=== PATIENT | female | born 1940 | race Two or more races ===

== ENCOUNTER 2017-05-04 16:15 | Inpatient (IN) | payer OTHER ==
[~2017-05-04] VITALS: Ht 160 cm; Wt 134.3 kg
[2017-05-04] MEDS ORDERED: SYNTHROID88 MCG (16:28)
[2017-05-04] MEDS ORDERED: NEURONTIN600 MG (16:28)
[2017-05-04] MEDS ORDERED: ZESTORETIC 20-1 EAC1 (16:29)
[2017-05-04] MEDS ORDERED: LIPITOR20 MG (16:29)
[2017-05-04] MEDS ORDERED: SINGULAIR10 MG (16:29)
[2017-05-04] MEDS ORDERED: ASPIR 8181 MG (16:29)
== END 2017-05-07 12:55 | disposition home or self-care (01) | DRG 202 ==
LOC: ER 16:15 → SEC-K 05-05 10:04 → MEDI 05-05 10:04
PROC: 3E0F7GC Introduction of Other Therapeutic Substance into Respiratory Tract, Via Natural or Artificial Opening (ICD-10-PCS; principal; 2017-05-05)
DX: J45.31 Mild persistent asthma with (acute) exacerbation (principal); J44.1 Chronic obstructive pulmonary disease with (acute) exacerbation; I10 Essential (primary) hypertension; E03.8 Other specified hypothyroidism

== ENCOUNTER 2017-08-16 13:14 | Outpatient (CLI) | payer OTHER ==
[~2017-08-16 13:14] MED LIST: ASPIR 8181 MG; LIPITOR20 MG; NEURONTIN600 MG; SINGULAIR10 MG; SYNTHROID88 MCG; ZESTORETIC 20-1 EAC1
== END 2017-08-16 13:34 | disposition home or self-care (01) ==
LOC: MAMO-SONO 13:14
DX: Z12.31 Encounter for screening mammogram for malignant neoplasm of breast (principal); Z87.898 Personal history of other specified conditions; N63.10 Unspecified lump in the right breast, unspecified quadrant; N63.20 Unspecified lump in the left breast, unspecified quadrant; D24.1 Benign neoplasm of right breast

== ENCOUNTER 2017-11-10 14:38 | Outpatient (CLI) | payer OTHER | END 2017-11-10 14:57 | disposition home or self-care (01) | LOC: SONOGRAMA 14:38 | DX: N60.11 Diffuse cystic mastopathy of right breast (principal); N60.12 Diffuse cystic mastopathy of left breast; N63.22 Unspecified lump in the left breast, upper inner quadrant ==

== ENCOUNTER 2017-12-15 12:20 | Outpatient (CLI) | payer OTHER | END 2017-12-15 12:34 | disposition home or self-care (01) | LOC: SONOGRAMA 12:20 | DX: N60.11 Diffuse cystic mastopathy of right breast (principal); N60.12 Diffuse cystic mastopathy of left breast; N63.22 Unspecified lump in the left breast, upper inner quadrant ==

== ENCOUNTER 2018-05-23 13:52 | Outpatient (CLI) | payer OTHER | END 2018-05-23 15:28 | disposition home or self-care (01) | LOC: TOM 13:52 | DX: R91.1 Solitary pulmonary nodule (principal); A15.0 Tuberculosis of lung ==

== ENCOUNTER 2018-06-05 16:25 | Outpatient (CLI) | payer OTHER ==
[2018-06-12] MEDS ORDERED: ZESTORETIC 10-1 EACH PO (16:49)
[2018-06-12] MEDS ORDERED: LATANOPROST2.5 ML OP (16:51)
== END 2018-06-05 16:49 | disposition home or self-care (01) ==
LOC: RAD 16:25
DX: I10 Essential (primary) hypertension (principal)

== ENCOUNTER 2018-06-15 06:13 | Day surgery (SDC) | payer OTHER ==
[~2018-06-15 06:13] MED LIST changes: +LATANOPROST2.5 ML OP; +ZESTORETIC 10-1 EACH PO
== END 2018-06-15 19:40 | disposition home or self-care (01) ==
LOC: CIR.AMB 06:13 → ADM 06-21 14:45
DX: D05.12 Intraductal carcinoma in situ of left breast (principal)

== ENCOUNTER 2019-05-16 16:24 | Outpatient (CLI) | payer OTHER | END 2019-05-16 16:44 | disposition home or self-care (01) | LOC: RAD 16:24 | DX: H25.011 Cortical age-related cataract, right eye (principal); Z98.41 Cataract extraction status, right eye ==

== ENCOUNTER 2019-06-25 14:14 | Outpatient (CLI) | payer OTHER | END 2019-06-25 14:19 | disposition home or self-care (01) | LOC: TOM 14:14 | DX: R91.1 Solitary pulmonary nodule (principal) ==

== ENCOUNTER 2019-11-05 13:47 | Outpatient (CLI) | payer OTHER | END 2019-11-05 13:52 | disposition home or self-care (01) | LOC: MAMO-SONO 13:47 | PROVIDERS: ATTEND Surgery | DX: D05.12 Intraductal carcinoma in situ of left breast (principal); N60.11 Diffuse cystic mastopathy of right breast; N60.12 Diffuse cystic mastopathy of left breast ==

== ENCOUNTER 2019-12-27 11:58 | Outpatient (CLI) | payer OTHER | END 2019-12-27 12:10 | disposition home or self-care (01) | LOC: SONOGRAMA 11:58 | PROVIDERS: ATTEND Surgery | DX: N60.11 Diffuse cystic mastopathy of right breast (principal); N60.12 Diffuse cystic mastopathy of left breast; R92.0 Mammographic microcalcification found on diagnostic imaging of breast ==

== ENCOUNTER 2020-09-17 14:42 | Outpatient (CLI) | payer OTHER | END 2020-09-17 15:01 | disposition home or self-care (01) | LOC: SONOGRAMA 14:42 | PROVIDERS: ATTEND Surgery | DX: D05.12 Intraductal carcinoma in situ of left breast (principal); N60.11 Diffuse cystic mastopathy of right breast; N60.12 Diffuse cystic mastopathy of left breast ==

== ENCOUNTER 2021-06-17 13:56 | Outpatient (CLI) | payer OTHER | END 2021-06-17 14:10 | disposition home or self-care (01) | LOC: MAMO-SONO 13:56 | PROVIDERS: ATTEND Surgery | DX: N60.11 Diffuse cystic mastopathy of right breast (principal); N60.12 Diffuse cystic mastopathy of left breast ==

== ENCOUNTER 2021-07-12 14:30 | Outpatient (CLI) | payer OTHER | END 2021-07-12 14:39 | disposition home or self-care (01) | LOC: TOM 14:30 | PROVIDERS: ATTEND Internal Medicine Pulmonary Disease | DX: R91.1 Solitary pulmonary nodule (principal); A15.0 Tuberculosis of lung; J30.9 Allergic rhinitis, unspecified; J45.50 Severe persistent asthma, uncomplicated ==

== ENCOUNTER 2022-06-01 10:23 | Outpatient (CLI) | payer OTHER | END 2022-06-01 10:29 | disposition home or self-care (01) | LOC: TOM 10:23 | PROVIDERS: ATTEND Internal Medicine Hematology & Oncology | DX: C50.412 Malignant neoplasm of upper-outer quadrant of left female breast (principal); Z17.0 Estrogen receptor positive status [ER+] | CPT/HCPCS: 71260; 74177; Q9965 ==